=== PATIENT | female | born 1990 ===

== ENCOUNTER 2017-02-09 19:45 | Emergency (ER) | payer OTHER ==
--- NOTE | 2017-02-09 20:32 | ED ---
Female Urogenital HPI - General Chief complaint: Urogenital Stated complaint: test Time Seen by Provider: 02/09/17 20:06 Source: patient, RN notes reviewed Mode of arrival: ambulatory Limitations: no limitations - History of Present Illness Initial comments: This a 26-year-old female presents emergency Department chief complaint of possible . Patient states that she took a few process weeks ago and they were positive. Patient has no vaginal bleeding or abdominal pain. Patient states she contacted PROGRAM MANAGEMENT INTERN Dr. Esa gates she is not having appointment for over 2 weeks from now. Patient states her last menstrual cycle was in October. Patient's had no care. Patient is A0. Patient denies any fever, chills, flank pain, dysuria or hematuria. She is also concerned about possible vaginal infection. She states she has recurrent Bactrim vaginal cyst. Patient states she is having increased discharged at this time. Last Menstrual Period: 12/12/16 - Related Data Home Medications Medication Instructions Recorded Confirmed Dextroamphetamine/Amphetamine 20 mg PO BID 02/09/17 02/09/17 [Adderall] Previous Rx's Medication Instructions Recorded Vdv-Nuws-Instn Acid 1 each PO DAILY #30 cap 02/09/17 [-U Capsule] metroNIDAZOLE [Flagyl] 500 mg PO BID #14 tab 02/09/17 Allergies Allergy/AdvReac Type Severity Reaction Status Date / Time No Known Allergies Allergy Verified 02/09/17 20:05 Review of Systems ROS Statement: Those systems with pertinent positive or pertinent negative responses have been documented in the HPI. ROS Other: All systems not noted in ROS Statement are negative. Past Medical History Past Medical History: No Reported History History of Any Multi-Drug Resistant Organisms: MRSA Date of last positivie culture/infection: 2011 MDRO Source:: elbow Past Surgical History: Tonsillectomy Past Psychological History: Anxiety Smoking Status: Current every day smoker Past Alcohol Use History: Occasional Past Drug Use History: None Reported General Exam Limitations: no limitations General appearance: alert, in no apparent distress Head exam: Present: atraumatic, normocephalic, normal inspection Respiratory exam: Present: normal lung sounds bilaterally. Absent: respiratory distress, wheezes, rales, rhonchi, stridor Cardiovascular Exam: Present: regular rate, normal rhythm, normal heart sounds. Absent: systolic murmur, diastolic murmur, rubs, gallop, clicks GI/Abdominal exam: Present: soft, normal bowel sounds. Absent: distended, tenderness, guarding, rebound, rigid External exam: Present: normal external exam, other (Exam performed with BRADLEY horton) Speculum exam: Present: vaginal discharge (thin white discharge) By manual exam: Present: normal by manual exam Back exam: Absent: CVA tenderness (R), CVA tenderness (L) Skin exam: Present: warm, dry, intact, normal color. Absent: rash Course Vital Signs 02/09/17 19:52 Temperature 97.4 F L Pulse Rate 84 Respiratory 18 Rate Blood Pressure 117/71 O2 Sat by Pulse 100 Oximetry Medical Decision Making - Medical Decision Making 26-year-old female presented for us . Patient ultrasound shows 13 weeks and 4 days. No complicating Process. Patient's pelvic exam does reveal some discharge most consistent with bacterial vaginosis. Patient we started on Flagyl return parameters were discussed. - Lab Data Lab Results 02/09/17 02/09/17 Range/Units 20:31 20:31 Urine Color Yellow Urine Appearance Clear (Clear) Urine pH 5.5 (5.0-8.0) Ur Specific [place] 1.015 (1.001-1.035) Urine Protein Negative (Negative) Urine Glucose (UA) Negative (Negative) Urine Ketones Negative (Negative) Urine Blood Negative (Negative) Urine Nitrite Negative (Negative) Urine Bilirubin Negative (Negative) Urine Urobilinogen <2.0 (<2.0) mg/dL Ur Leukocyte Esterase Negative (Negative) Urine HCG, Qual Detected (Not Detectd) Disposition Clinical Impression: Bacterial vaginosis, Disposition: HOME SELF-CARE Condition: Stable Instructions: (ED) Additional Instructions: Please return to the Emergency Department if symptoms worsen or any other concerns. Prescriptions: metroNIDAZOLE [Flagyl] 500 mg PO BID #14 tab Xyt-Eefe-Ryhqm Acid [-U Capsule] 1 each PO DAILY #30 cap Referrals: Robel Navarrete DO [Primary Care Provider] - 1-2 days Time of Disposition: 21:43
[2017-02-09 20:42] LABS: Appearance,Urine Clear (Clear); Bilirubin,Urine Negative (Negative); Glucose,Urine (UA) Negative (Negative); Ketones,Urine Negative (Negative); Leukocyte Esterase,Urine Negative (Negative); Nitrite,Urine Negative (Negative); PH, Urine 5.5 (5.0-8.0); Protein,Urine Negative (Negative); Specific Gravity,Urine 1.015 (1.001-1.035); UA Billing (MACRO vs. MICRO) CHEM; Urobilinogen,Urine <2.0 mg/dL (<2.0)
--- NOTE | 2017-02-09 21:04 | US ---
EXAMINATION TYPE: US OB <=14 wks transvag DATE OF EXAM: 02/09/2017 COMPARISON: NONE CLINICAL HISTORY: Pain. EXAM PERFORMED: Transabdominal (TA) EXAM MEASUREMENTS: GESTATIONAL AGE / DATING Physician Established: Not established Dates by LMP: Unknown Dates by First Scan: This is first scan Dates by Current Scan for: (13 weeks/5 days) EDC: 08/12/2017 MATERNAL ANATOMY Uterus: 12.7 x 10.9 x 10.5 xcm Post CDS / Adnexa: wnl Presence of free fluid: no Presence of corpus luteal cyst: no Presence of subchorionic bleed: no GESTATION / SURVEY CRL: 7.7 cm (13 weeks/5 days) Heart Rate: 139 bpm Rhythm: Normal IUP: Viable IUP Date of LMP: unknown Beta HcG (if available): not available Viable IUP 13 weeks 5 days EDC 08/12/2017 IMPRESSION: The ultrasound gestational age is 13 weeks 5 days. I see no complicating process. The PITER is 8
[2017-02-09 21:58] VITALS: BP 108/66; PULSE 67; RESP 16; TEMP 97.6
== END 2017-02-09 21:55 | disposition home or self-care (01) ==
LOC: EC 19:45
DX: O23.591 Infection of other part of genital tract in pregnancy, first trimester (principal); N76.0 Acute vaginitis; O99.331 Smoking (tobacco) complicating pregnancy, first trimester; F17.200 Nicotine dependence, unspecified, uncomplicated; Z3A.13 13 weeks gestation of pregnancy; Z86.14 Personal history of Methicillin resistant Staphylococcus aureus infection; Z79.899 Other long term (current) drug therapy
CPT/HCPCS: 76801; 81003; 81025; 87070; 87205; 87491; 87591; 87808; 99284

== ENCOUNTER → 2017-03-06 | Outpatient (CLI) | payer OTHER ==
[2017-03-06 15:35] LABS: CH 33.2; CHCM 33.6; HCT 37.1 % (34.0-46.0); HDW 2.15; HGB 12.2 gm/dL (11.4-16.0); MCH 32.8 pg (25.0-35.0); MCHC 32.9 g/dL (31.0-37.0); MCV 99.4 fL (80.0-100.0); Mean Platelet Volume 7.4; RBC 3.74 m/uL (3.80-5.40); RDW 12.3 % (11.5-15.5); WBC 9.6 k/uL (3.8-10.6)
[2017-03-06 16:31] LABS: Glucose 79 mg/dL (74-99); Non-African American GFR(MDRD) >60 (>60 ml/min/1.73 sqM)
[2017-03-06 17:03] LABS: Hepatitis B Surface Ag Index 0.05
[2017-03-06 22:49] LABS: Treponemal Ab Non-Reactive (Non-Reactive)
[2017-03-09 11:25] LABS: Alpha Fetoprotein 37.8 ng/mL; Alpha Fetoprotein (M.O.M) 1.17; B-HCG (M.O.M.) 1.05; Gestational Age (days) 2; Human Chorionic Gonadotropin 17.3 IU/mL; Inhibin A (M.O.M.) 0.51; Interpretation SeeBelow; Maternal Age at EDD (Yrs) 29; Smoker Yes
== END | disposition home or self-care (01) ==
LOC: LABWHC1 15:01
PROVIDERS: ATTEND Obstetrics & Gynecology
DX: Z34.02 Encounter for supervision of normal first pregnancy, second trimester (principal)
CPT/HCPCS: 36415; 82105; 82565; 82677; 82947; 84702; 85027; 86336; 86762; 86780; 86850; 86900; 86901; 87340

== ENCOUNTER 2017-08-07 05:56 | Inpatient (IN) | payer OTHER ==
[2017-08-05 12:53] VITALS: BMI 37.5
--- NOTE | 2017-08-06 16:50 | P.HPOB ---
History of Present Illness H&P Date: 08/06/17 Chief Complaint: Breech 27 year old presents at 39 weeks 2 days for primary low transverse c- section due to Breech presentation. Review of Systems All systems: negative Constitutional: Denies chills, Denies fever Eyes: denies blurred vision, denies pain Ears, nose, mouth and throat: Denies headache, Denies sore throat Cardiovascular: Denies chest pain, Denies shortness of breath Respiratory: Denies cough Gastrointestinal: Denies abdominal pain, Denies diarrhea, Denies nausea, Denies vomiting Genitourinary: Denies dysuria, Denies hematuria Musculoskeletal: Denies myalgias Integumentary: Denies pruritus, Denies rash Neurological: Denies numbness, Denies weakness Psychiatric: Denies anxiety, Denies depression Endocrine: Denies fatigue, Denies weight change Past Medical History Past Medical History: No Reported History Additional Past Medical History / Comment(s): Obstetric history: This is her first and she has had care with me since 17 weeks. O neg, abs neg, Rub Imm, Treponemal ab neg, Hep B neg, normal quad. GBS +. History of Any Multi-Drug Resistant Organisms: MRSA Date of last positivie culture/infection: 2011 MDRO Source:: RT ELBOW Past Surgical History: Tonsillectomy Past Anesthesia/Blood Transfusion Reactions: No Reported Reaction Past Psychological History: No Psychological Hx Reported Smoking Status: Current every day smoker Past Alcohol Use History: None Reported Past Drug Use History: None Reported - Past Family History Mother Family Medical History: No Reported History Medications and Allergies Home Medications Medication Instructions Recorded Confirmed Type No Known Home Medications [No 08/05/17 08/05/17 History Known Home Medications] Allergies Allergy/AdvReac Type Severity Reaction Status Date / Time No Known Allergies Allergy Verified 08/05/17 12:49 Exam Osteopathic Statement: *. No significant issues noted on an osteopathic structural exam other than those noted in the History and Physical/Consult. Heart: Regular rate and rhythm Lungs: Clear to auscultation bilaterally Abdomen: Soft, nontender Extremities: Negative Homans sign Assessment and Plan (1) Breech presentation Status: Acute Code(s): O32.1XX0 - MATERNAL CARE FOR BREECH PRESENTATION, UNSP SNOMED Code(s): 3767798 Plan: 1. Primary low transverse
[2017-08-07] MEDS ORDERED: CITRIC ACID-SODIUM CITRATE 15 ML CUP PO ONE (06:06)
[2017-08-07] MEDS ORDERED: ceFAZolin IN SWFI 2 GM/20 ML SYRINGE IVP ONE (06:06)
[2017-08-07] MEDS: LACTATED RINGERS 1,000 ML IV SCH ×2 (06:23→15:30)
[2017-08-07 06:29] LABS: Basophils # (A) 0.1 k/uL (0-0.2); Basophils % (A) 1 %; Eosinophils # (A) 0.1 k/uL (0-0.7); Eosinophils % (A) 1 %; HCT 38.1 % (34.0-46.0); HGB 12.9 gm/dL (11.4-16.0); Lymphocytes # (A) 2.6 k/uL (1.0-4.8); Lymphocytes % (A) 24 %; MCH 32.2 pg (25.0-35.0); MCHC 33.8 g/dL (31.0-37.0); MCV 95.3 fL (80.0-100.0); Mean Platelet Volume 8.3; Monocytes # (A) 0.6 k/uL (0-1.0); Monocytes % (A) 5 %; Neutrophils # (A) 7.6 k/uL (1.3-7.7); Neutrophils % (A) 68 %; Platelet Count 291 k/uL (150-450); RDW 12.6 % (11.5-15.5); WBC 11.1 k/uL (3.8-10.6)
[2017-08-07] MEDS ORDERED: DEXAMETHASONE SOD PHOS (MDV) 100 MG/10 ML VIAL ONE (08:03)
[2017-08-07] MEDS ORDERED: MORPHINE SULFATE (PF) 0.3 MG/0.3 ML SYR ONE (08:03)
[2017-08-07] MEDS ORDERED: KETOROLAC 30 MG/ML 1 ML VIAL ONE (08:03)
[2017-08-07] MEDS ORDERED: NALBUPHINE 10 MG/ML AMPUL ONE (08:03)
[2017-08-07] MEDS ORDERED: ONDANSETRON 4 MG/2 ML VIAL ONE (08:03)
[2017-08-07] MEDS ORDERED: HYDROmorphone 0.5 MG/0.5 ML SYRINGE IVP PRN (08:30)
[2017-08-07] MEDS ORDERED: NALOXONE 0.4 MG/ML 1 ML VIAL IV PRN ×2 (08:30→08:53)
[2017-08-07] MEDS ORDERED: ONDANSETRON 4 MG/2 ML VIAL IVP PRN (08:30)
[2017-08-07] MEDS ORDERED: ACETAMINOPHEN TAB 325 MG TAB PO PRN (08:53)
[2017-08-07] MEDS ORDERED: KETOROLAC 30 MG/ML 1 ML VIAL IVP PRN (08:53)
[2017-08-07] MEDS ORDERED: diphenhydrAMINE 50 MG/ML 1 ML VIAL IVP PRN ×2 (08:53)
[2017-08-07] MEDS ORDERED: diphenhydrAMINE 25 MG CAP PO PRN (08:53)
[2017-08-07] MEDS ORDERED: diphenhydrAMINE 50 MG CAP PO PRN (08:53)
[2017-08-07] MEDS ORDERED: METOCLOPRAMIDE 5 MG/ML 2 ML VIAL IVP PRN (08:53)
[2017-08-07] MEDS ORDERED: Rhogam IMMUNE GLOBULIN 1,500 UNIT/1 ML IM ONE (08:53)
[2017-08-07] MEDS ORDERED: Acetaminophen-Codeine 300-30mg TAB PO PRN ×2 (08:53)
[2017-08-07] MEDS ORDERED: SIMETHICONE 80 MG CHEWABLE PO PRN (08:53)
[2017-08-07] MEDS ORDERED: LANOLIN CREAM 5 GM TUBE TOPICAL PRN (08:53)
[2017-08-07] MEDS ORDERED: ZOLPIDEM 5 MG TAB PO PRN (08:53)
--- NOTE | 2017-08-07 08:59 | P.OP ---
Date of Procedure: 08/07/17 Preoperative Diagnosis: 1. at 39 weeks 2 days 2. Breech presentation Postoperative Diagnosis: 1. at 39 weeks 2 days 2. Breech presentation Procedure(s) Performed: Primary low transverse Anesthesia: spinal Surgeon: Randee See Business Banking Representative #1: Pam Scott Estimated Blood Loss (ml): 800 IV fluids (ml): 1,500 Urine output (ml): 200 Pathology: other (placenta) Condition: stable Disposition: floor Operative Findings: viable male. 7,9, weight 7#10oz Description of Procedure: Patient was taken to the operating room where spinal anesthesia was found be adequate. She was prepped and draped in normal sterile fashion in dorsal supine position with a leftward tilt. Pfannenstiel skin incision was made the scalpel and carried through to the underlying layer of fascia with the scalpel. Fascia was incised in midline and carried bilaterally with the Araujo scissors. The superior aspect of the fascial incision was grasped with Anni clamps elevated and the underlying rectus muscles dissected off with the Araujo's. Attention was then turned to inferior aspect of same incision which in a similar fashion was grasped tented up and the underlying rectus muscles dissected off with the Araujo's. The rectus muscles were the midline and the peritoneum was identified tented up and entered sharply with the scalpel. The incision was extended superiorly and inferiorly with good visualization of the bladder. The bladder blade was inserted and the vesicouterine peritoneum was incised the Metzenbaums then carried bilaterally and bladder flap created digitally. A low transverse incision was then made on the uterus with the scalpel. This was carried bilaterally and digital manner. Infant delivered in normal breech fashion, nose and mouth bulb suctioned, cord clamped and cut, infant handed off to waiting nurses. Apgars 7,9, weight 7 lbs. 10 oz. Placenta delivered manually, intact with three-vessel cord. The uterus is exteriorized and cleared of all clots and debris. The uterine incision was closed with 0 Vicryl in a running locked fashion. Second layer of the same sutures used in imbricating fashion to obtain excellent hemostasis. Bladder flap was then reapproximated using 2-0 Vicryl in a running fashion. Both ovaries and tubes appeared normal. The uterus was placed back into the abdomen. The peritoneum was reapproximated using 2-0 Vicryl in a running fashion. The muscles were reapproximated using 2-0 Vicryl in interrupted fashion. The fascia was reapproximated using 0 Vicryl in a running fashion. The subcutaneous tissues closed with 3-0 Vicryl running fashion. The skin was closed todd. Patient tolerated the procedure well, sponge and instrument counts were correct times 2 and she was taken to the recovery room in stable condition.
[2017-08-07] MEDS ORDERED: OXYTOCIN 20 UNITS/1000 ML NS 1,000 ML IV SCH (09:00)
[2017-08-07] MEDS: KETOROLAC 30 MG/ML 1 ML VIAL IVP PRN ×2 (14:04→22:55)
[2017-08-07] MEDS: SENNOSIDES-DOCUSATE SODIUM 1 EACH TAB PO SCH (21:34)
[2017-08-08] MEDS: LACTATED RINGERS 1,000 ML IV SCH (00:31)
[2017-08-08 07:30] LABS: Basophils % (A) 0 %; Eosinophils # (A) 0.1 k/uL (0-0.7); Eosinophils % (A) 1 %; HCT 31.5 % (34.0-46.0); HGB 10.4 gm/dL (11.4-16.0); Lymphocytes # (A) 2.2 k/uL (1.0-4.8); Lymphocytes % (A) 23 %; MCH 31.5 pg (25.0-35.0); MCHC 32.8 g/dL (31.0-37.0); Mean Platelet Volume 8.3; Monocytes # (A) 0.6 k/uL (0-1.0); Monocytes % (A) 6 %; Neutrophils # (A) 6.6 k/uL (1.3-7.7); Neutrophils % (A) 69 %; Platelet Count 219 k/uL (150-450); RBC 3.29 m/uL (3.80-5.40); RDW 12.8 % (11.5-15.5); WBC 9.6 k/uL (3.8-10.6)
--- NOTE | 2017-08-08 08:07 | P.PNOBGPC ---
Subjective - Subjective Principal diagnosis: Status post primary low transverse . POD #1 Interval history: Patient seen and examined. Has not passed flatus yet. Tolerating clear liquid diet. Ambulating and voiding without difficulty. Patient reports: Reports appetite normal, Reports voiding normally, Reports pain well controlled, Reports ambulating normally : doing well Objective - Vital Signs Latest vital signs: Vital Signs Temp Pulse Resp BP Pulse Ox 08/08/17 05:00 16 98 08/08/17 04:00 98 F 68 15 106/55 08/08/17 03:00 16 97 08/08/17 01:00 15 98 08/08/17 00:00 98.2 F 65 15 119/79 97 08/07/17 23:00 15 08/07/17 21:00 15 98 08/07/17 20:00 98 F 70 15 130/77 98 08/07/17 19:00 16 08/07/17 17:00 16 96 08/07/17 16:00 97.9 F 57 L 16 137/85 95 08/07/17 15:00 97.9 F 56 L 16 137/85 95 08/07/17 13:30 96 08/07/17 13:00 18 08/07/17 12:00 97.8 F 60 16 120/71 08/07/17 11:30 60 16 120/71 08/07/17 10:59 97.6 F 58 L 16 118/70 08/07/17 10:29 56 L 20 111/65 08/07/17 09:59 59 L 16 107/58 08/07/17 09:44 97.4 F L 55 L 16 109/68 08/07/17 09:30 63 16 103/69 97 08/07/17 09:29 63 16 103/69 08/07/17 09:14 57 L 16 103/65 08/07/17 09:07 75 20 100/59 99 08/07/17 08:59 75 20 100/59 Intake and Output 08/07/17 08/08/17 08/08/17 22:59 06:59 14:59 Output Total 1600 1000 Balance -1600 -1000 Output: Urine 1600 1000 Uretheral (Ko) 800 Other: # Voids 1 - Exam Lungs: bilateral: normal Chest: Normal S1, Normal S2 Extremities: Present: normal Abdomen: Present: normal appearance, soft. Absent: distention, tenderness Incision: Present: normal, dry, intact Uterus: Present: normal, firm - Labs Labs: Abnormal Lab Results - Last 24 Hours (Table) 08/08/17 Range/Units 07:03 RBC 3.29 L (3.80-5.40) m/uL Hgb 10.4 L (11.4-16.0) gm/dL Hct 31.5 L (34.0-46.0) % Assessment and Plan (1) Breech presentation Current Visit: Yes Status: Resolved Code(s): O32.1XX0 - MATERNAL CARE FOR BREECH PRESENTATION, UNSP SNOMED Code(s): 0489068 (2) Status post primary low transverse section Current Visit: Yes Status: Acute Code(s): Z98.891 - HISTORY OF UTERINE SCAR FROM PREVIOUS SURGERY SNOMED Code(s): 341756290 Plan: 1. Increase ambulation 2. Regular diet with positive flatus.
[2017-08-08] MEDS: SENNOSIDES-DOCUSATE SODIUM 1 EACH TAB PO SCH ×2 (08:19→22:04)
[2017-08-08] MEDS: IBUPROFEN 600 MG TAB PO PRN ×2 (16:02→22:03)
--- NOTE | 2017-08-08 20:58 | P.PN ---
Progress Note - Text Date: 08/08/2017 Time: 2028 The patient is status post section Vital signs stable VAS: 0-10 Patient has no complaints of pain. The patient incurred some minimal itching yesterday, this itching is now subsiding. Pain meds to be managed by service.
[2017-08-09 00:27] VITALS: PULSE 73
[2017-08-09] MEDS: IBUPROFEN 600 MG TAB PO PRN (03:25)
--- NOTE | 2017-08-09 06:41 | P.PNOBGPC ---
Subjective - Subjective Patient reports: Reports appetite normal, Reports voiding normally, Reports pain well controlled, Reports ambulating normally : doing well Objective - Vital Signs Latest vital signs: Vital Signs Temp Pulse Resp BP 08/09/17 00:00 97.6 F 73 15 125/85 08/08/17 15:40 98.0 F 80 16 137/87 08/08/17 08:00 97.6 F 67 16 110/66 Intake and Output 08/08/17 08/08/17 08/09/17 14:59 22:59 06:59 Output Total 600 Balance -600 Output: Urine 600 Other: # Voids 1 - Exam Lungs: bilateral: normal Chest: Normal S1, Normal S2 Extremities: Present: normal Abdomen: Present: normal appearance, soft. Absent: distention, tenderness Incision: Present: normal, dry, intact Uterus: Present: normal, firm - Labs Labs: Abnormal Lab Results - Last 24 Hours (Table) 08/08/17 Range/Units 07:03 RBC 3.29 L (3.80-5.40) m/uL Hgb 10.4 L (11.4-16.0) gm/dL Hct 31.5 L (34.0-46.0) % Assessment and Plan Assessment: Postoperative day #2. Patient is resting without complaints. Vital signs are stable and she is afebrile. She is ambulating, urinating, tolerating regular diet without difficulty. Patient would like to go home today. CBC from yesterday was normal. Exam shows her incision to be intact and dry healing well. My impression is this is a normal post operative course. Patient's felt be stable for discharge home follow up with Dr. See in 1 week. (1) Status post primary low transverse section Current Visit: Yes Status: Acute Code(s): Z98.891 - HISTORY OF UTERINE SCAR FROM PREVIOUS SURGERY SNOMED Code(s): 758256033
--- NOTE | 2017-08-09 06:45 | P.DS ---
Providers Date of admission: 08/07/17 05:56 Expected date of discharge: 08/09/17 Attending physician: Randee See Primary care physician: Stated None - Discharge Diagnosis(es) (1) Status post primary low transverse section Current Visit: Yes Status: Acute Hospital Course: Please see dictated H&P for intimate details of this patient's admission. Brief summary this is a 27-year-old 1 para [address] See for primary section secondary to persistent breech presentation. Patient is admitted subsequent goes above-named surgery. Postoperative patient does well postoperative 2 she felt be stable for discharge home follow up with Dr. See in 1 week. Procedures: Primary low transverse section. Patient Condition at Discharge: Good Plan - Discharge Summary Discharge Rx Participant: Yes New Discharge Prescriptions: New Acetaminophen-Codeine 300-30mg [Tylenol w/codeine #3] 1 - 2 each PO Q4HR PRN #30 tab PRN Reason: Mild Pain Ibuprofen [Motrin] 600 mg PO Q6HR PRN #40 tab PRN Reason: Mild Pain Or Fever >= 100.5 No Action Pnv No.95/Ferrous Fum/Folic AC [ Multivitamin Tablet] 1 each PO DAILY Discharge Medication List Pnv No.95/Ferrous Fum/Folic AC [ Multivitamin Tablet] 1 each PO DAILY [History] Acetaminophen-Codeine 300-30mg [Tylenol w/codeine #3] 1 - 2 each PO Q4HR PRN # 30 tab 08/09/17 [Rx] Ibuprofen [Motrin] 600 mg PO Q6HR PRN #40 tab 08/09/17 [Rx] Follow up Appointment(s)/Referral(s): Randee See DO [Doctor of Osteopathic Medicine] - 08/19/17 1:30 pm ( Patient also has a visit with Dr. See in September 23 at 11:15 AM.) Patient Instructions/Handouts: (DC) Activity/Diet/Wound Care/Special Instructions: No heavy lifting or strenuous activity for 6 weeks. No intercourse or anything per vagina for 6 weeks. Please call if any fever, chills, excessive vaginal bleeding, and/or abdominal pain. Discharge Disposition: HOME SELF-CARE
[2017-08-09 08:08] VITALS: BP 128/78; RESP 16; TEMP 98.1
== END 2017-08-09 11:45 | disposition home or self-care (01) | DRG 766 ==
LOC: 4FBP 05:56
PROVIDERS: ADMIT Obstetrics & Gynecology; ATTEND Obstetrics & Gynecology
PROC: 10D00Z1 Extraction of Products of Conception, Low, Open Approach (ICD-10-PCS; principal; 2017-08-07 08:03)
DX: O32.1XX0 Maternal care for breech presentation, not applicable or unspecified (principal); F17.200 Nicotine dependence, unspecified, uncomplicated; O99.334 Smoking (tobacco) complicating childbirth; O99.824 Streptococcus B carrier state complicating childbirth; Z37.0 Single live birth; Z3A.39 39 weeks gestation of pregnancy
CPT/HCPCS: 85025; 85461; 86850; 86900; 86901; 88307

== ENCOUNTER → 2020-04-05 | Outpatient (CLI) | payer OTHER | END | disposition home or self-care (01) | LOC: LABWHC1 14:20 | PROVIDERS: ATTEND Physician Assistant | DX: R43.2 Parageusia (principal) | CPT/HCPCS: U0003; C9803 ==